=== PATIENT | male | born 1995 | race Two or more races ===

== ENCOUNTER 2018-02-19 17:24 | Emergency (ER) | payer OTHER ==
[~2018-02-19] VITALS: Ht 160 cm; Wt 72.6 kg
[2018-02-19] MEDS ORDERED: TETANUS-DIPTH-ACEL PERTUSSIS 0.5ML SYRG IM ONE (20:15)
[2018-02-19 20:22] VITALS: BP 110/53
== END 2018-02-19 20:28 | disposition home or self-care (01) ==
LOC: ER 17:37 → EDBD 17:37 → ER 20:28
DX: S01.01XA Laceration without foreign body of scalp, initial encounter (principal); W22.8XXA Striking against or struck by other objects, initial encounter; Y93.01 Activity, walking, marching and hiking; Y92.89 Other specified places as the place of occurrence of the external cause; Y99.8 Other external cause status
CPT/HCPCS: 12001; 90471; 90715